=== PATIENT | female | born 1965 | race American Indian/Alaskan Native ===

== ENCOUNTER 2021-08-15 16:29 | Emergency (ER) | payer BC, MEDICAID ==
[~2021-08-15] VITALS: Ht 170.2 cm; Wt 117.3 kg
[~2021-08-15 16:29] MED LIST: ALBU8.5H17 IH; DIAZ5TAB PO; IBUP-1986 PO; NO HOME MEDS; TRAM50TA2 PO; ZOF4T PO
[2021-08-15 16:32] VITALS: BP 154/92
[2021-08-15] MEDS ORDERED: ipratropium/albuterol 3ml nebule NEB ONE (17:25)
[2021-08-15] MEDS ORDERED: LORazepam 1 MG tablet PO ONE (17:25)
--- NOTE | 2021-08-15 17:39 | NUR ---
rt at bedside
== END 2021-08-15 18:17 | disposition home or self-care (01) ==
LOC: ER 16:29
DX: F41.0 Panic disorder [episodic paroxysmal anxiety] (principal); J44.1 Chronic obstructive pulmonary disease with (acute) exacerbation; G89.29 Other chronic pain; Z72.89 Other problems related to lifestyle; Z88.8 Allergy status to other drugs, medicaments and biological substances; Z88.5 Allergy status to narcotic agent; Z79.899 Other long term (current) drug therapy
CPT/HCPCS: 71046; 94640; 94760; 99283

== ENCOUNTER 2025-03-12 18:33 | Emergency (ER) | payer MEDICARE, MEDICAID ==
[~2025-03-12] VITALS: Ht 170.2 cm; Wt 105.2 kg
[2025-03-12] MEDS: HYDROcodone/acetaminophen 10/325mg tab PO ONE (20:37)
--- NOTE | 2025-03-12 20:38 | Physician Documentation ---
History of Present Illness ~ Chief Complaint: Abscess Stated Complaint: CYST Time Seen by MD: 20:16 Primary Medical Doctor: [facility] This is a 59-year-old female who presents with areas of redness, pain and swelling to her left lower abdomen and central thoracic back present and progressively worsening for the past five days. Patient reports no fevers chills, or other systemic symptoms. Patient reports the area on her left lower abdomen began draining purulent material spontaneously today. Tetanus Within 5 Years: Yes Medication Reconciliation Allergies: Coded Allergies: codeine (Unverified Allergy, Intermediate, 02/14/15) morphine (Unverified Allergy, Intermediate, 02/14/15) Scheduled Diazepam (Valium), 1 TABLET PO TID Ibuprofen (Ibuprofen), 1 TABLET PO TID Ondansetron ODT* (Zofran ODT*), 4 MG PO Q6H Sulfamethoxazole/Trimethoprim (Bactrim Ds Tablet), 1 TAB PO Q12H Scheduled PRN Albuterol Sulfate (Proair Hfa), 2 PUFFS IH Q4H PRN for SOB or wheezing Tramadol Hcl (Tramadol Hcl), 50-100 MG PO Q6H PRN FOR PAIN PRN for pain Miscellaneous Medications Home Med List (No Home Medications), (Reported) Past Medical History Past Medical History: COPD, Chronic Back Pain, Anxiety, Depression Past Surgical History: noncontributory Alcohol Use: None Drug Use: none Lives with: Spouse Occupation: employed Review of Systems ROS As stated above in the HPI, otherwise all systems are reviewed and negative. Physical Exam Vital Signs: Temperature: 98.2, Source: Temporal, Heart Rate: 88, Respiratory Rate: 18, BP: 137/71, Pulse Oximetry: 99, Weight: 105.200 Oxygen Flow Rate: 0 Physical Exam VITALS: Reviewed and as above. GENERAL: Alert, nontoxic appearing, no apparent distress. RESPIRATORY: No increased work of breathing, no respiratory distress, speaking in full clear sentences SKIN: Skin of left lower abdomen area of tenderness, erythema, and induration with minimal fluctuance 5 cm by 7 cm approximately, area at the center open with small amount of purulent drainage spontaneously, with surrounding erythema without fluctuance or induration extending approximately 5-6 cm in all directions. Skin of central thoracic back area of tenderness, erythema, and fluctuance approximately 4 cm x 5 cm minimal surrounding erythema without significant induration. Procedures I & D Procedure #1: Site: Lower abdomen Anesthesia: Lidocaine w/ Epi Volume Anesthetic (mls): 6 Blade Size: 11 Prep/Supplies: drapes applied, dressing applied Incision: mass incised, pus drained, blood drained Tolerated Procedure Well?: yes, no complications Procedure Note Loculations broken up small amount of purulent material and blood drained I & D Procedure #2: Site: Central thoracic back Anesthesia: Lidocaine w/ Epi Volume Anesthetic (mls): 6 Blade Size: 11 Prep/Supplies: drapes applied, dressing applied Incision: mass incised, pus drained, blood drained Tolerated Procedure Well?: yes, no complications Procedure Note Loculations broken up, moderate amount of purulent material and blood drained Progress Results/Orders Results/Orders Orders - INGRID SAWANT Cult (Aer) Routine C&S+Gram St (03/12/25 20:29) Laceration/I&D Tray Set Up (03/12/25 20:29) Cult (Aer) Routine C&S+Gram St (03/12/25 20:31) Completed Orders - INGRID SAWANT Hydrocodone/Apap 10/325 ([place] 10/325mg (03/12/25 20:30) Lidocaine 1% W/Epi 1:100,000 (Xylocaine (03/12/25 20:30) Tetanus/Pertuss/Diph Acell/Pf (Boostrix (03/12/25 20:30) Sulfamethox/Trimetho. Ds Tab (Septra Ds (03/12/25 21:40) Medications Received in ER Medications (Trade) Dose Ordered Sig/Destiny Route PRN Reason Start Time Stop Time Status Last Admin Dose Admin ([place] 10/325mg tab) 1 tab ONCE ONCE PO 03/12/25 20:30 03/12/25 20:31 DC 03/12/25 20:37 1 TAB (Xylocaine 1%-EPI 1:100,000) Physician to administ... ONCE ONCE IJ 03/12/25 20:30 03/12/25 20:50 DC 03/12/25 21:07 10 ML (Boostrix vaccine syringe) 0.5 ml ONCE ONCE IMVAC 03/12/25 20:30 03/12/25 20:31 DC 03/12/25 20:52 0.5 ML (Septra DS tab) 1 tab ONCE ONCE PO 03/12/25 21:40 03/12/25 21:41 DC 03/12/25 21:50 1 TAB Vital Signs 03/12/25 03/12/25 18:35 21:59 Temp 98.2 98.6 Pulse 88 86 Resp 18 20 B/P (MAP) 137/71 135/70 Pulse Ox 99 99 O2 Flow Rate 0 Medical Decision Making Additional information obtaine: N/A Findings This is a 59-year-old female who presents with two areas of erythema, swelling, induration, and fluctuance progressively worsening over the past five days with one located to the left lower abdomen and one to the skin of central thoracic back, both areas consistent with uncomplicated superficial skin abscess. It is reassuring patient is otherwise well-appearing reporting no systemic symptoms including fevers or chills. With the areas amenable to incision and drainage. Concern for deep tissue infection is low based on palpation of the abscesses and without deep tenderness to palpation. Incision drainage performed, see procedure note. Patient is otherwise well-appearing and appropriate for outpatient follow up and discharged on course of oral antibiotics. Patient provided home care instructions return to care precautions, and follow up instructions which she verbalized understanding of. Differential Dx:Considerations: Include: Abscess, Bacteremia, Cellulitis, Erysipelas, Felon, Gas gangrene, Lymphangitis, Septicemia, Other (Myositis, necrotizing fasciitis) Departure Time of Disposition: 21:37 Disposition: 01 HOME / SELF CARE / HOMELESS Impression: Primary Impression: Abscess Condition: Improved Discharge Instructions: Abscess, Care After Additional Instructions: Keep the areas clean dry and covered, wash and soak the areas at least once a day to promote drainage or material, you may soak the areas more often to promote drainage. Take the antibiotics as prescribed. You may use ibuprofen and or Tylenol as directed by [id number] packaging. Please follow up with your primary care provider in the next few days. Please return to the emergency department for any new or worsening concerning symptoms limited to worsening pain and swelling of the areas or if you develop a fever over 100.4 that does not lower with ibuprofen or Tylenol. Referrals: NO PRIMARY CARE PROVIDER (PCP) Prescriptions Sulfamethoxazole/Trimethoprim (Bactrim Ds Tablet) 800 Mg-160 Mg Tablet 1 TAB PO Q12H for 7 Days, #14 TAB Prov: INGRID SAWANT 03/12/25 Education Educated: Patient Educated regarding: diagnosis, treatment, prognosis, need for follow up Signature Scribe Signature: No scribe Attestation: The note accurately reflects work and decisions made by me.PILO Mendez 03/13/25 00:29 INGRID SAWANT Mar 12, 2025 20:38
[2025-03-12] MEDS: TETanus/Pertussis (Acell)/Diphther VAC/PF (Tdap-Adult) 0.5ml syringe IMVAC ONE (20:52)
[2025-03-12] MEDS: LIDOcaine 1% W/epiNEPHrine 1:100,000 20ml vial IJ ONE (21:07)
[2025-03-12] MEDS ORDERED: SULF1TAB49 PO (21:38)
[2025-03-12] MEDS: sulfamethoxazole/trimethoprim DS (800/160mg) tablet PO ONE (21:50)
[2025-03-12 21:59] VITALS: BP 135/70; PULSE 86; RESP 20; TEMP 98.6; O2SAT 99
== END 2025-03-12 22:00 | disposition home or self-care (01) ==
LOC: ER 18:34
DX: L02.211 Cutaneous abscess of abdominal wall (principal); L02.212 Cutaneous abscess of back [any part, except buttock and flank]; J44.9 Chronic obstructive pulmonary disease, unspecified; F41.9 Anxiety disorder, unspecified; F31.9 Bipolar disorder, unspecified; Z88.5 Allergy status to narcotic agent; Z88.8 Allergy status to other drugs, medicaments and biological substances
CPT/HCPCS: 10061; 87070; 90715; 99284; A6266; A6402; G0008; J3490; Z7610; 90471; A6449